=== PATIENT | female | born 1955 | race Caucasian/White ===

== ENCOUNTER 2016-07-16 11:43 | Outpatient (CLI) ==
[2014-01-03 16:17] VITALS: BMI 28.2
--- NOTE | 2016-07-16 16:01 | MRI ---
EXAM: MRI of the left lower extremity without contrast COMPARISON: None available. HISTORY: Mass, localized swelling with pain involving the arch of both feet. No known injury. TECHNIQUE: Multiplanar noncontrast MR images of the left midfoot and forefoot were acquired using a 1.2 Ani magnet. FINDINGS: There is moderate osteoarthrosis along the first metatarsophalangeal joint. No evidence of an acute fracture, osteomyelitis or osteonecrosis. Partial osseous/fibrous calcaneonavicular coa lition which is partially imaged secondary degenerative changes. No evidence of a complete osseous coalition. Intact Lisfranc ligament fibers are identified. Low-level subcutaneous edema throughout the distal forefoot without a drainable fluid collection or focal soft tissue ulcer. There is some scarring/fibrosis within the subcutaneous tissues along the p lantar aspect of the fifth metatarsophalangeal joint. Subcutaneous edema along the plantar aspect of the mid foot and visualized portions of the ankle/hind-foot which is partially imaged. Mild degener ative spurring dorsally at the talonavicular and navicular cuneiform articulations. Trace intermeta tarsal bursitis involving the first through third interspaces at the level of the metatarsophalangea l joints. There are multiple regions of nodularity involving the plantar aponeurosis at the site of clinical c oncern within the midfoot and proximal forefoot consistent with plantar fibromatosis. These extend over a length of 3.2 cm measure up to 1.7 cm in medial to lateral dimension as well as 0.6 cm in thi ckness. The calcaneal attachment of the plantar fascia is excluded from the field of view. Tenosynov itis involving the flexor digitorum and flexor hallicus longus at the level the midfoot. IMPRESSION: 1. Thickening and nodularity of the plantar aponeurosis at the level of the midfoot proximal forefo ot at the site of clinical concern, most compatible with plantar fibromatosis. 2. No acute osseous abnormality. Degenerative changes of the midfoot and forefoot most pronounced at the first metatarsophalangeal joint. 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 3. Subcutaneous edema without a drainable fluid collection. 4. Trace inner metatarsal bursitis. Minimal flexor digitorum and flexor hallicus longus tenosynovi tis.
--- NOTE | 2016-07-16 16:05 | MRI ---
EXAM: MRI of the right lower extremity without contrast COMPARISON: None available. HISTORY: Mass/localized swelling with a painful knot at the level of the arch of the foot bilateral ly. No known injury. TECHNIQUE: Multiplanar noncontrast MR images of the right midfoot and forefoot were acquired using a 1.2 Ani magnet. FINDINGS: No recent radiographs of the right foot available for comparison and radiographic correla tion is recommended. There is moderate osteoarthrosis of the first metatarsophalangeal joint. Mild degenerative spurring dorsally at the talonavicular and navicular cuneiform articulations. There is some talar beaking. P artial osseous/fibrous calcaneonavicular coalition at the proximal margin of the field of view with secondary degenerative changes. Intact Lisfranc ligament fibers are identified. No evidence of an acute fracture or osteomyelitis. Trace intermetatarsal bursitis involving the distal first through third interspaces. Small metatarsophalangeal joint effusions. There is thickening and nodularity of the plantar aponeurosis at the level of the proximal forefoot through the midfoot at the site of clinical concern measuring up to 1.7 cm in length of 1.2 cm media l to lateral dimension measuring up to 0.5 cm in thickness. Small foci of nodularity just proximal to that level. This is most compatible with plantar fibromatosis. Subcutaneous edema along the pennie ntar aspect of the distal forefoot. Subcutaneous edema throughout the plantar aspect of the midfoot and visualized portions of the ankle/hind-foot which is partially imaged. No drainable fluid colle ction. Accessory navicular. No full-thickness tendon tear or tendon retraction. IMPRESSION: 1. Findings consistent with plantar fibromatosis at the level of the midfoot proximal forefoot as d escribed above. 2. Osteoarthrosis of the midfoot and forefoot. Accessory navicular. Partial osseous/fibrous calcane onavicular correlation with secondary degenerative changes as described. 3. Small metatarsophalangeal joint effusions. Trace intermetatarsal bursitis.
== END 2016-07-16 11:44 | disposition home or self-care (01) ==
LOC: RAD 11:43
PROVIDERS: ATTEND Physician Assistant Medical
DX: R22.43 Localized swelling, mass and lump, lower limb, bilateral (principal)

== ENCOUNTER 2017-08-29 11:08 | Outpatient (CLI) ==
[2014-01-03 16:17] VITALS: BMI 28.2
== END 2017-08-29 11:09 | disposition home or self-care (01) ==
LOC: RAD 11:08
PROVIDERS: ATTEND Physician Assistant Medical
DX: Z12.31 Encounter for screening mammogram for malignant neoplasm of breast (principal)
CPT/HCPCS: 77067

== ENCOUNTER 2018-08-24 10:46 | Emergency (ER) | payer OTHER ==
[2018-08-24 11:03] VITALS: BP 144/75; TEMP 97.9; BMI 26.6
--- NOTE | 2018-08-24 11:25 | ED.PDOC ---
General ED Provider: Dr. ISIDRA WASHINGTON Chief Complaint: Finger Pain/Injury Stated Complaint: I smashed LT Thumb in [place] back. Pain in distal lt 1st phalynx Time Seen by Physician: 11:15 Mode of Arrival: Walk-In Information Source: Patient Exam Limitations: No limitations Primary Care Provider: LORE PIERSON Nursing and Triage Documentation Reviewed and Agree: Yes Does patient meet sepsis criteria?: No System Inflammatory Response Syndrome: Not Applicable Sepsis Protocol: For patient's 13 years and over: Temp is 96.8 and below OR 101 and greater Pulse >90 BPM Resp >20/minute Acutely Altered Mental Status Are patient's symptoms suggestive of a new infection, such as: -Pneumonia -Skin, Soft Tissue -Endocarditis -UTI -Bone, Joint Infection -Implantable Device -Acute Abdominal Infection -Wound Infection -Meningitis -Blood Stream Catheter Infection -Unknown Trauma/Injury Complaint Exam - Trauma Complaint/Exam Location of Pain or Injury: Reports: LUE (Thumb) Mechanism of Injury: Reports: Blunt trauma Onset/Duration: Earlier today Symptoms Are: Still present Timing of Treatment: Immediate Initial Severity: Moderate Current Severity: Moderate Character: Reports: Aching, Pressure Aggravating: Reports: Movement Alleviating: Reports: Ice Associated Signs and Symptoms: Reports: Bruising. Denies: LOC, Confusion, Memory loss, Lethargy, Vomiting, Bleeding, Swelling, Extremity disuse, Painful respiration, Hoarseness, Dysphagia, Hemoptysis, Significant blood loss Penetrating Injury Risk Factors: Reports: None Related Surgical History: Reports: None Skin Findings: Present: Contusion (Lt thumb) Differential Diagnoses: Contusions, Fracture, Strain Review of Systems - Review Of Systems Constitutional: Reports: No symptoms Eyes: Reports: No symptoms Ears, Nose, Mouth, Throat: Reports: No symptoms Respiratory: Reports: No symptoms Cardiac: Reports: No symptoms GI: Reports: No symptoms : Reports: No symptoms Musculoskeletal: Reports: Joint pain Skin: Reports: No symptoms Neurological: Reports: No symptoms Endocrine: Reports: No symptoms Hematologic/Lymphatic: Reports: No symptoms All Other Systems: Reviewed and Negative Past Medical History - Past Medical History Previously Healthy: Yes Endocrine: Reports: None Cardiovascular: Reports: None Respiratory: Reports: None Hematological: Reports: None Gastrointestinal: Reports: None Genitourinary: Reports: None Neuro/Psych: Reports: Depression Musculoskeletal: Reports: None Cancer: Reports: None Last Menstrual Period: N/A - Surgical History General Surgical History: Reports: None - Family History Family History: Reports: None - Social History Smoking Status: Current every day smoker Hx Substance Use: No Alcohol Screening: Occasionally - Immunizations Tetanus Shot up to Date: No Physical Exam - Physical Exam Appearance: Well-appearing, Well-nourished Ill-appearing: None Pain Distress: Moderate Eyes: KEVIN, EOMI, Conjunctiva clear ENT: Ears normal, Nose normal, Oropharynx normal Respiratory: Airway patent, Breath sounds clear, Breath sounds equal, Respirations nonlabored Cardiovascular: RRR, Pulses normal, No rub, No murmur GI/: Soft, Nontender, No masses, Bowel sounds normal, No Organomegaly Musculoskeletal: Normal strength, ROM intact, No edema, No calf tenderness Skin: Warm, Dry, Normal color Neurological: Sensation intact, Motor intact, Reflexes intact, Cranial nerves intact, Alert, Oriented Psychiatric: Affect appropriate, Mood appropriate Critical Care Note - Critical Care Note Total Time (mins): 30 Course - Course Orders, Labs, Meds: Orders Category Date Time Status SPLINT [TREATMENT ORDER:NURSING] ONCE CARE 08/24/18 12:13 Active Wound care [ED WOUND CARE] .ONCE EMERGENCY 08/24/18 11:31 Active Diphth,Pertuss(Acell),Tet Vac [Boostrix] MEDS 08/24/18 12:16 Discontinued 0.5 ml IM .ONCE ONE THUMB, LEFT Stat RADS 08/24/18 11:27 Completed Medications Discontinued Medications Generic Name Dose Route Start Last Admin Trade Name Freq PRN Reason Stop Dose Admin Diphtheria/Pertussis/Tetanus Vacc 0.5 ml 08/24/18 12:16 08/24/18 12:27 Boostrix IM 08/24/18 12:17 0.5 ml .ONCE ONE Administration Vital Signs: Temp Pulse Resp BP Pulse Ox 08/24/18 10:47 97.9 F 46 L 18 144/75 H 98 Departure - Departure Time of Disposition: 12:20 Disposition: HOME SELF-CARE Discharge Problem: Contusion of left thumb Instructions: Laceration (ED), Contusion in Adults (ED), Skin Adhesive Care (ED ) Condition: Good Pt referred to PMD for follow-up: Yes (1 week) IPMP verified?: No Additional Instructions: Splint Ice and elevate Wound Care of wound lt thumb and care of steristrips Ibuprofen tylenol for pain as needed Allergies/Adverse Reactions: Allergies No Known Allergies Allergy (Unverified 08/24/18 10:51) Home Medications: Ambulatory Orders Fluoxetine HCl [Prozac] 20 mg PO DAILY 08/24/18 Lamotrigine [Lamictal] 150 mg PO DAILY 08/24/18 Mirtazapine [Remeron] 30 mg PO BEDTIME 08/24/18 Disposition Discussed With: Patient, Family
--- NOTE | 2018-08-24 12:03 | DI ---
EXAM: Three views of the left thumb. History: Left thumb trauma. Findings: No acute fracture or dislocation. Joint spaces are relatively preserved. Impression: No acute osseous abnormality
[2018-08-24] MEDS ORDERED: BOOSTRIX IM ONE (12:16)
== END 2018-08-24 13:10 | disposition home or self-care (01) ==
LOC: ED 10:46
DX: S60.012A Contusion of left thumb without damage to nail, initial encounter (principal); W23.0XXA Caught, crushed, jammed, or pinched between moving objects, initial encounter; F17.210 Nicotine dependence, cigarettes, uncomplicated
CPT/HCPCS: 90471; 90715; 99283

== ENCOUNTER 2018-10-21 08:55 | Emergency (ER) ==
[2018-10-21 09:04] VITALS: BP 131/80; TEMP 99.7; BMI 26.2
--- NOTE | 2018-10-21 09:18 | ED.PDOC ---
General ED Provider: Dr. ISIDRA CARVALHO MD Chief Complaint: Bite Stated Complaint: cat bite, pain right hand Time Seen by Physician: 09:10 Mode of Arrival: Walk-In Information Source: Patient Exam Limitations: No limitations Primary Care Provider: LORE PIERSON Nursing and Triage Documentation Reviewed and Agree: Yes Does patient meet sepsis criteria?: No If yes, has appropriate treatment been initiated?: Yes System Inflammatory Response Syndrome: Not Applicable Sepsis Protocol: For patient's 13 years and over: Temp is 96.8 and below OR 101 and greater Pulse >90 BPM Resp >20/minute Acutely Altered Mental Status Are patient's symptoms suggestive of a new infection, such as: -Pneumonia -Skin, Soft Tissue -Endocarditis -UTI -Bone, Joint Infection -Implantable Device -Acute Abdominal Infection -Wound Infection -Meningitis -Blood Stream Catheter Infection -Unknown Review of Systems - Review Of Systems Constitutional: Reports: No symptoms Eyes: Reports: No symptoms Ears, Nose, Mouth, Throat: Reports: No symptoms Respiratory: Reports: No symptoms Cardiac: Reports: No symptoms GI: Reports: No symptoms : Reports: No symptoms Musculoskeletal: Reports: No symptoms Skin: Reports: No symptoms Neurological: Reports: No symptoms Endocrine: Reports: No symptoms Hematologic/Lymphatic: Reports: No symptoms All Other Systems: Reviewed and Negative Past Medical History - Past Medical History Previously Healthy: Yes Endocrine: Reports: None Cardiovascular: Reports: None Respiratory: Reports: None Hematological: Reports: None Gastrointestinal: Reports: None Genitourinary: Reports: None Neuro/Psych: Reports: Depression Musculoskeletal: Reports: None Cancer: Reports: None Last Menstrual Period: n/a - Surgical History General Surgical History: Reports: None - Family History Family History: Reports: None - Social History Smoking Status: Former smoker Hx Substance Use: No Alcohol Screening: Occasionally - Immunizations Tetanus Shot up to Date: Yes Physical Exam - Physical Exam Appearance: Well-appearing, No pain distress, Well-nourished Eyes: KEVIN, EOMI, Conjunctiva clear ENT: Ears normal, Nose normal, Oropharynx normal Respiratory: Airway patent, Breath sounds clear, Breath sounds equal, Respirations nonlabored Cardiovascular: RRR, Pulses normal, No rub, No murmur GI/: Soft, Nontender, No masses, Bowel sounds normal, No Organomegaly Musculoskeletal: Normal strength, ROM intact, No edema, No calf tenderness Skin: Warm (mild swellin jeanne 4th MCP joint) Neurological: Sensation intact, Motor intact, Reflexes intact, Cranial nerves intact, Alert, Oriented Psychiatric: Affect appropriate, Mood appropriate Critical Care Note - Critical Care Note Total Time (mins): 0 Course - Course Vital Signs: Temp Pulse Resp BP Pulse Ox 10/21/18 08:56 99.7 F H 58 L 18 131/80 98 Departure - Departure Time of Disposition: 09:28 Disposition: HOME SELF-CARE Discharge Problem: Cat bite involving extremity, Cellulitis of hand Instructions: Pelvic Inflammatory Disease (ED), Cellulitis (ED) Condition: Good Pt referred to PMD for follow-up: Yes IPMP verified?: No Prescriptions: Sulfamethoxazole/Trimethoprim [Bactrim Ds Tablet] 1 each PO 1-2XD 7 Days #14 tablet NS Allergies/Adverse Reactions: Allergies acetaminophen [From Vicodin] Adverse Reaction (Verified 10/21/18 09:11) hydrocodone [From Vicodin] Adverse Reaction (Verified 10/21/18 09:11) Home Medications: Ambulatory Orders Fluoxetine HCl [Prozac] 20 mg PO DAILY 08/24/18 Lamotrigine [Lamictal] 150 mg PO DAILY 08/24/18 Mirtazapine [Remeron] 30 mg PO BEDTIME 08/24/18 Sulfamethoxazole/Trimethoprim [Bactrim Ds Tablet] 1 each PO 1-2XD 7 Days #14 tablet NS 10/21/18
== END 2018-10-21 09:41 | disposition home or self-care (01) ==
LOC: ED 08:55
DX: S61.451A Open bite of right hand, initial encounter (principal); L03.113 Cellulitis of right upper limb; W55.01XA Bitten by cat, initial encounter
CPT/HCPCS: 99282